=== PATIENT | female | born 1970 | race Caucasian/White ===

== ENCOUNTER 2016-05-20 10:39 | Outpatient (CLI) | payer OTHER | END 2016-05-20 10:40 | disposition home or self-care (01) | DX: R59.0 Localized enlarged lymph nodes (principal) ==

== ENCOUNTER 2016-12-09 07:15 | Outpatient (CLI) | payer OTHER ==
[2016-12-09 11:21] LABS: BASOPHILS # (AUTO) 0.1 10^3/uL (0.0-0.1); BASOPHILS % (AUTO) 0.4 %; EOSINOPHILS # (AUTO) 0.2 10^3/uL (0.0-0.7); EOSINOPHILS % (AUTO) 1.5 %; HGB - HEMOGLOBIN 14.4 g/dL (12.0-16.0); LYMPHOCYTES # (AUTO) 5.6 10^3/uL (1.5-3.5); LYMPHOCYTES % (AUTO) 45.2 %; MEAN CORPUSCULAR HEMOGLOBIN 28.1 pg (27.0-31.0); MEAN CORPUSCULAR HGB CONC 32.8 g/dL (32.0-36.0); MEAN CORPUSCULAR VOLUME 85.7 fL (81.0-99.0); MEAN PLATELET VOLUME 6.6 fL (7.9-10.8); MONOCYTES # (AUTO) 0.7 10^3/uL (0.0-1.0); MONOCYTES % (AUTO) 5.5 %; NEUTROPHILS # (AUTO) 5.9 10^3/uL (1.5-6.6); NEUTROPHILS % (AUTO) 47.4 %; RED BLOOD COUNT 5.13 10^6/uL (4.20-5.40); RED CELL DISTRIBUTION WIDTH 14.5 % (12.0-15.0); UNCORRECTED WHITE BLOOD COUNT 12.4 x10^3/uL; WHITE BLOOD COUNT 12.4 x10^3/uL (4.8-10.8)
[2016-12-09 11:40] LABS: ALBUMIN/GLOBULIN RATIO 1.1 (1.0-2.2); BILIRUBIN,TOTAL 0.5 mg/dL (0.2-1.0); BUN - BLOOD UREA NITROGEN 13 mg/dL (6-20); CALCIUM 8.9 mg/dL (8.5-10.3); CARBON DIOXIDE - CO2 27 mmol/L (21-32); CHLORIDE 102 mmol/L (101-111); CHOL/HDL RATIO 6.1 (<4.4); CHOLESTEROL 276 mg/dL; GFR - MDRD 60 (>89); GLUCOSE 73 mg/dL (70-100); HDL CHOLESTEROL 45 mg/dL; LDL/HDL RATIO 4.4 (<4.4); POTASSIUM 4.4 mmol/L (3.5-5.0); SODIUM 138 mmol/L (135-145); TOTAL PROTEIN 6.6 g/dL (6.7-8.2); TRIGLYCERIDES 166 mg/dL; VLDL CHOLESTEROL 33 mg/dL
[2016-12-09 12:02] LABS: WBC MORPHOLOGY (MULTIPLE) 1+ REACTIVE LYMPHS (NORMAL)
== END 2016-12-09 07:16 | disposition home or self-care (01) ==
LOC: LAB.F 07:15
PROVIDERS: ATTEND Physician Assistant Medical
DX: E78.5 Hyperlipidemia, unspecified (principal); Z51.81 Encounter for therapeutic drug level monitoring
CPT/HCPCS: 36415; 80053; 80061; 85025

== ENCOUNTER 2017-06-07 14:53 | Outpatient (CLI) | payer OTHER, BC | END 2017-06-07 14:54 | disposition EMS.NT | LOC: EMS 14:53 | PROVIDERS: ATTEND Surgery | DX: R42 Dizziness and giddiness (principal); R10.9 Unspecified abdominal pain ==

== ENCOUNTER 2017-06-07 15:46 | Emergency (ER) | payer OTHER, BC ==
[2017-06-07 15:58] VITALS: BP 143/80
[2017-06-07] MEDS ORDERED: KETOROLAC 60 MG/2 ML VIAL IVP STA (16:07)
[2017-06-07] MEDS ORDERED: ONDANSETRON 4 MG/2 ML VIAL IVP STA (16:07)
--- NOTE | 2017-06-07 16:09 | ED Physician Documentation ---
PD HPI ABD PAIN - Stated complaint Stated Complaint: RIGHT SIDE BACK PX - Chief complaint Chief Complaint: Abd Pain - History obtained from History obtained from: Patient - History of Present Illness Timing - onset: Today (47-year-old woman with history of renal colic 1 which did require intervention may be 2 or 3 years ago at [employer] presents with acute right flank pain starting while at work about 45 minutes ago. She also feels nauseous. No fevers or urinary complaints.) Review of Systems Ten Systems: 10 systems reviewed and negative Constitutional: reports: Sweats. denies: Fever, Chills Cardiac: denies: Chest pain / pressure, Palpitations Respiratory: denies: Dyspnea, Cough GI: reports: Nausea. 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: Other - Present Medications Home Medications: Ambulatory Orders Medication Instructions Recorded Confirmed Alprazolam [Xanax] 0.5 mg PO BID PRN 09/01/15 09/01/15 Hydrocodone/Acetaminophen [Vicodin 1 each PO QID PRN 09/01/15 09/01/15 Es 7.5-300 mg Tablet] Temazepam [Restoril] 30 mg PO DAILY 09/01/15 09/01/15 Fluoxetine HCl [Prozac] 80 mg PO DAILY 06/07/17 06/07/17 HYDROcod/ACETAM 5/325 [[place] 5/325] 1 - 2 ea PO Q6H PRN #15 tablet 06/07/17 - Allergies Allergies/Adverse Reactions: Allergies Allergy/AdvReac Type Severity Reaction Status Date / Time No Known Drug Allergies Allergy Verified 06/07/17 15:52 - Social History Does the pt smoke?: Yes Smoking Status: Heavy tobacco smoker Does the pt drink ETOH?: No Does the pt have substance abuse?: No - Family History Family history: reports: Non contributory - Immunizations Immunizations are current?: Yes - POLST Patient has POLST: No PD ED PE NORMAL - Vitals Vital signs reviewed: Yes - General General: Alert and oriented X 3, Other (She appears mildly uncomfortable.) - HEENT HEENT: PERRL, EOMI - Neck Neck: Supple, no meningeal sign, No bony TTP - Cardiac Cardiac: RRR, No murmur - Respiratory Respiratory: No respiratory distress, Clear bilaterally - Abdomen Abdomen: Normal bowel sounds, Soft, Other (Mild right abdominal and flank tenderness) - Back Back: No spinal TTP - Derm Derm: Normal color, Warm and dry - Extremities Extremities: No edema, No calf tenderness / cord - Neuro Neuro: Alert and oriented X 3, Normal speech Results - Vitals Vitals: Vital Signs - 24 hr 06/07/17 15:49 Temperature 36.0 C L Heart Rate 56 L Respiratory 18 Rate Blood Pressure 143/80 H O2 Saturation 97 Oxygen O2 Source Room air - Labs Labs: Laboratory Tests 06/07/17 06/07/17 06/07/17 16:00 16:21 16:21 WBC 9.5 RBC 5.01 Hgb 14.4 Hct 42.8 MCV 85.4 MCH 28.8 MCHC 33.7 RDW 14.2 Plt Count 297 MPV 6.6 L Neut # 5.0 Lymph # 3.7 H [place] # 0.6 Eos # 0.2 Baso # 0.1 Absolute Nucleated RBC 0.01 Nucleated RBC % 0.1 Sodium 136 Potassium 3.3 L Chloride 102 Carbon Dioxide 27 Anion Gap 7.0 BUN 9 Creatinine 0.7 Estimated GFR (MDRD) 90 Glucose 86 Calcium 9.6 Total Bilirubin 0.4 AST 14 ALT 16 Alkaline Phosphatase 81 Total Protein 8.1 Albumin 4.5 Globulin 3.6 Albumin/Globulin Ratio 1.3 Lipase 29 Urine Color YELLOW Urine Clarity CLEAR Urine pH 5.5 Ur Specific [place] 1.010 Urine Protein NEGATIVE Urine Glucose (UA) NEGATIVE Urine Ketones NEGATIVE Urine Occult Blood NEGATIVE Urine Nitrite NEGATIVE Urine Bilirubin NEGATIVE Urine Urobilinogen 0.2 (NORMAL) Ur Leukocyte Esterase NEGATIVE Ur Microscopic Review NOT INDICATED Urine Culture Comments NOT INDICATED Urine HCG, Qual NEGATIVE - Rads (name of study) CT KUB Radiology: EMP read contemporaneously (Right nephrolithiasis with mild right hydronephrosis and disease at the bases of the lungs.) PD MEDICAL DECISION MAKING - ED course ED course: 47-year-old woman with acute right flank pain consistent with renal colic, no stones seen seen on CT but she does have hydronephrosis. This was explored with her and it sounds like she does have some stricturing from prior kidney stone. She was also advised to stop smoking given the findings on CT regarding her lungs. She was given a copy of her CT on CD and advised to follow-up with her urologist. Departure - Departure Disposition: 01 Home, Self Care Clinical Impression: Hydronephrosis Qualifiers: Hydronephrosis type: unspecified Qualified Code(s): N13.30 - Unspecified hydronephrosis Condition: Good Record reviewed to determine appropriate education?: Yes Instructions: ED Pelvic Pain UKO Prescriptions: HYDROcod/ACETAM 5/325 [[place] 5/325] 1 - 2 ea PO Q6H PRN #15 tablet PRN Reason: Pain Comments: Follow-up with your physician and explore referral to a urologist. Take the copy of the CAT scan on CD with you. Return if worsening. Try to quit smoking as discussed given the findings on your CAT scan. Do not drink or drive while taking narcotic pain medication. Note that many narcotic pain relievers also contain Tylenol/acetaminophen. Please ensure that your total dose of acetaminophen from all sources does not exceed 3 g (3000 mg) per day. You may get constipated while on this medication. Take a stool softener such as Colace twice a day while you are on it. Also add an bjvt-zun-lyzrvyl laxative such as senna or MiraLAX on any day that you do not have a bowel movement. If you received a narcotic pain medication or sedative while in the emergency department, do not drive for the next 24 hours. Your blood pressure was elevated today on check into the emergency department. This does not mean that you have hypertension, it is a common phenomenon to come to the emergency department and have elevated blood pressure. I recommend that you see your primary care physician within the week to have it rechecked when you are feeling better.
[2017-06-07 16:27] LABS: BASOPHILS # (AUTO) 0.1 10^3/uL (0.0-0.1); BASOPHILS % (AUTO) 0.6 %; EOSINOPHILS # (AUTO) 0.2 10^3/uL (0.0-0.7); EOSINOPHILS % (AUTO) 1.8 %; HGB - HEMOGLOBIN 14.4 g/dL (12.0-16.0); LYMPHOCYTES # (AUTO) 3.7 10^3/uL (1.5-3.5); LYMPHOCYTES % (AUTO) 38.7 %; MEAN CORPUSCULAR HEMOGLOBIN 28.8 pg (27.0-31.0); MEAN CORPUSCULAR HGB CONC 33.7 g/dL (32.0-36.0); MEAN CORPUSCULAR VOLUME 85.4 fL (81.0-99.0); MEAN PLATELET VOLUME 6.6 fL (7.9-10.8); MONOCYTES # (AUTO) 0.6 10^3/uL (0.0-1.0); MONOCYTES % (AUTO) 5.8 %; NEUTROPHILS % (AUTO) 53.1 %; PLT - PLATELET COUNT 297 10^3/uL (130-450); RED BLOOD COUNT 5.01 10^6/uL (4.20-5.40); RED CELL DISTRIBUTION WIDTH 14.2 % (12.0-15.0); WHITE BLOOD COUNT 9.5 x10^3/uL (4.8-10.8)
[2017-06-07 16:36] LABS: BILIRUBIN,URINE NEGATIVE (NEGATIVE); CLARITY,URINE CLEAR (CLEAR); GLUCOSE, URINE (UA) NEGATIVE (NEGATIVE); KETONES,URINE (UA) NEGATIVE (NEGATIVE); LEUKOCYTE ESTERASE, URINE NEGATIVE (NEGATIVE); NITRITE,URINE NEGATIVE (NEGATIVE); OCCULT BLOOD,URINE NEGATIVE (NEGATIVE); PH,URINE 5.5 PH (5.0-7.5); PROTEIN,URINE NEGATIVE (NEGATIVE); UROBILINOGEN,URINE 0.2 (NORMAL) E.U./dL (NORMAL)
[2017-06-07 16:37] LABS: HCG UR QUAL NEGATIVE
[2017-06-07 16:39] LABS: ALBUMIN 4.5 g/dL (3.2-5.5); ALBUMIN/GLOBULIN RATIO 1.3 (1.0-2.2); BILIRUBIN,TOTAL 0.4 mg/dL (0.2-1.0); CALCIUM 9.6 mg/dL (8.5-10.3); CREATININE 0.7 mg/dL (0.4-1.0); TOTAL PROTEIN 8.1 g/dL (6.7-8.2)
--- NOTE | 2017-06-07 17:11 | CT Report ---
EXAM: CT ABDOMEN AND PELVIS (CT KUB) EXAM DATE: 06/07/2017 04:52 PM. CLINICAL HISTORY: R flank pain. COMPARISONS: 08/14/2015. TECHNIQUE: Routine axial helical CT imaging was performed through the abdomen and pelvis without IV c ontrast. Reconstructions: Coronal and sagittal. In accordance with CT protocol optimization, one or more of the following dose reduction techniques w ere utilized for this exam: automated exposure control, adjustment of mA and/or KV based on patient s ize, or use of iterative reconstructive technique. FINDINGS: Lung Bases: The lung bases demonstrate a mosaic parenchymal pattern. There is mild interlobular septa l thickening. There is a stable nodularity within the lung bases. No evidence of pleural effusion. Right Kidney/Ureter: There is a small nonobstructing stone within the inferior right kidney. There is mild right hydronephrosis. No evidence of significant hydroureter. No distal obstructing stone is se en. No perinephric stranding. Left Kidney/Ureter: No stones, hydronephrosis, or hydroureter. No perinephric fat stranding. Other Solid Organs: Noncontrast images of the solid organs are grossly unremarkable. Gallbladder/Bile Ducts: The gallbladder is surgically absent. There is no significant bile duct dilat ation. Peritoneal Cavity: No dilated or thick-walled bowel is seen. The appendix is normal. No enlarged mese nteric or retroperitoneal lymph nodes. No intraperitoneal free air or free fluid. Pelvic Organs: Uterus and adnexa demonstrate no significant abnormalities. There is mild heterogeneit y of the right ovary. The urinary bladder demonstrates no stones. Vasculature: Unremarkable. Other: None. IMPRESSION: 1. There is right nephrolithiasis. There is mild right hydronephrosis without evidence of obstructing stone. Findings could be secondary to passed stone or infection. 2. No evidence of appendicitis or bowel obstruction. 3. The lung bases demonstrate a mosaic parenchymal pattern. There is some interlobular septal thicken ing. There are scattered nodules within the lung bases. Differential considerations include air grace ing secondary to small to medium airway disease, lung edema, or interstitial lung disease. [facility] Referring Provider Line: [phone] SITE ID: [id number]
[2017-06-07] MEDS ORDERED: MORPHINE 10 MG/ML VIAL IVP STA (17:21)
== END 2017-06-07 18:11 | disposition home or self-care (01) ==
LOC: ED 15:46
DX: N13.30 Unspecified hydronephrosis (principal); N20.0 Calculus of kidney; R03.0 Elevated blood-pressure reading, without diagnosis of hypertension; F17.210 Nicotine dependence, cigarettes, uncomplicated
CPT/HCPCS: 36415; 74176; 80053; 81001; 81003; 81025; 83690; 85025; 87086; 96374; 96375; 99283

== ENCOUNTER 2018-04-10 08:00 | Outpatient (CLI) | payer BC, OTHER ==
[2018-04-10 10:29] LABS: BASOPHILS % (AUTO) 0.3 %; EOSINOPHILS # (AUTO) 0.2 10^3/uL (0.0-0.7); EOSINOPHILS % (AUTO) 1.8 %; HGB - HEMOGLOBIN 14.6 g/dL (12.0-16.0); LYMPHOCYTES # (AUTO) 3.2 10^3/uL (1.5-3.5); LYMPHOCYTES % (AUTO) 33.6 %; MEAN CORPUSCULAR HEMOGLOBIN 29.4 pg (27.0-31.0); MEAN CORPUSCULAR HGB CONC 33.9 g/dL (32.0-36.0); MEAN CORPUSCULAR VOLUME 86.6 fL (81.0-99.0); MEAN PLATELET VOLUME 7.2 fL (7.9-10.8); MONOCYTES # (AUTO) 0.5 10^3/uL (0.0-1.0); MONOCYTES % (AUTO) 4.9 %; NEUTROPHILS # (AUTO) 5.7 10^3/uL (1.5-6.6); NEUTROPHILS % (AUTO) 59.4 %; PLT - PLATELET COUNT 300 10^3/uL (130-450); RED BLOOD COUNT 4.96 10^6/uL (4.20-5.40); RED CELL DISTRIBUTION WIDTH 14.4 % (12.0-15.0); WHITE BLOOD COUNT 9.5 x10^3/uL (4.8-10.8)
[2018-04-10 11:04] LABS: ALBUMIN 3.8 g/dL (3.2-5.5); ALBUMIN/GLOBULIN RATIO 1.1 (1.0-2.2); ALKALINE PHOSPHATASE 77 IU/L (42-121); ALT ALANINE AMINOTRANSFERASE 15 IU/L (10-60); AST ASPARTATE AMINOTRANSFERASE 12 IU/L (10-42); BILIRUBIN,TOTAL 0.2 mg/dL (0.2-1.0); BUN - BLOOD UREA NITROGEN 9 mg/dL (6-20); CALCIUM 9.2 mg/dL (8.5-10.3); CARBON DIOXIDE - CO2 26 mmol/L (21-32); CHLORIDE 103 mmol/L (101-111); CHOL/HDL RATIO 7.6 (<4.4); CHOLESTEROL 325 mg/dL; CREATININE 0.7 mg/dL (0.4-1.0); GFR - MDRD 90 (>89); GLUCOSE 89 mg/dL (70-100); HDL CHOLESTEROL 43 mg/dL; LDL CHOLESTEROL,CALCULATED 240 mg/dL; LDL/HDL RATIO 5.6 (<4.4); SODIUM 138 mmol/L (135-145); TOTAL PROTEIN 7.3 g/dL (6.7-8.2); VLDL CHOLESTEROL 42 mg/dL
== END 2018-04-10 23:59 | disposition home or self-care (01) ==
LOC: LAB.F 08:00
PROVIDERS: ATTEND Physician Assistant Medical
DX: Z51.81 Encounter for therapeutic drug level monitoring (principal); Z79.899 Other long term (current) drug therapy
CPT/HCPCS: 36415; 80053; 80061; 83721; 85025

== ENCOUNTER 2018-04-17 10:40 | Outpatient (CLI) | payer BC | END 2018-04-17 10:41 | disposition critical access hospital (66) | LOC: EMS 10:40 | PROVIDERS: ATTEND Surgery | DX: R55 Syncope and collapse (principal) | CPT/HCPCS: A0425; A0427 ==

== ENCOUNTER 2018-04-17 11:04 | Emergency (ER) | payer BC ==
--- NOTE | 2018-04-17 12:02 | ED Physician Documentation ---
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 She was brought in by ambulance with a normal blood sugar. EKG was reported to be normal. Patient is somnolent and a hesitant historian. She almost immediately asked to go home after my evaluation but before any diagnostics have been done.) Review of Systems Constitutional: denies: Fever, Chills Cardiac: denies: Chest pain / pressure, Palpitations Respiratory: reports: Dyspnea. 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: Other - Present Medications Home Medications: Ambulatory Orders Medication Instructions Recorded Confirmed Alprazolam [Xanax] 0.5 mg PO BID PRN 09/01/15 09/01/15 Hydrocodone/Acetaminophen [Vicodin 1 each PO QID PRN 09/01/15 09/01/15 Es 7.5-300 mg Tablet] Temazepam [Restoril] 30 mg PO DAILY 09/01/15 09/01/15 Fluoxetine HCl [Prozac] 80 mg PO DAILY 06/07/17 06/07/17 - Allergies Allergies/Adverse Reactions: Allergies Allergy/AdvReac Type Severity Reaction Status Date / Time Penicillins Allergy Hives Verified 04/17/18 11:27 - Social History Does the pt smoke?: Yes Smoking Status: Current every day smoker Does the pt drink ETOH?: No Does the pt have substance abuse?: No - Immunizations Immunizations are current?: Yes - POLST Patient has POLST: No PD ED PE NORMAL - Vitals Vital signs reviewed: Yes - General General: Other (She is somnolent but easily arousable. She is slow to speak and has slightly slurred speech. 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 Eye Opening: Spontaneous Motor: Obeys Commands Verbal: Oriented GCS Score: 15 - Psych Psych: Normal mood, Normal affect Results - Vitals Vitals: Vital Signs - 24 hr 04/17/18 04/17/18 11:22 13:23 Temperature 36.8 C Heart Rate 72 61 Respiratory 17 22 Rate Blood Pressure 132/92 H 117/77 O2 Saturation 96 97 Oxygen O2 Source Room air - EKG (time done) 1120 Rate: Rate (enter#) (70) Rhythm: NSR [place]: Normal Intervals: Normal IN QRS: Normal Ischemia: Normal ST segments Computer interpretation: Agree with computer - Labs Labs: Laboratory Tests 04/17/18 04/17/18 04/17/18 12:09 12:20 12:20 WBC 8.7 RBC 4.73 Hgb 14.1 Hct 40.6 MCV 85.9 MCH 29.9 MCHC 34.8 RDW 14.2 Plt Count 290 MPV 6.7 L Neut # (Auto) 6.0 Lymph # (Auto) 1.9 [place] # (Auto) 0.6 Eos # (Auto) 0.1 Baso # (Auto) 0.0 Absolute Nucleated RBC 0.00 Nucleated RBC % 0.0 Sodium 138 Potassium 3.8 Chloride 104 Carbon Dioxide 24 Anion Gap 10.0 BUN 8 Creatinine 0.6 Estimated GFR (MDRD) 107 Glucose 90 Calcium 8.8 Total Bilirubin 0.4 AST 14 ALT 13 Alkaline Phosphatase 69 Total Protein 6.9 Albumin 3.7 Globulin 3.2 Albumin/Globulin Ratio 1.2 Lipase 34 Urine Color YELLOW Urine Clarity CLEAR Urine pH 5.0 Ur Specific [place] 1.010 Urine Protein NEGATIVE Urine Glucose (UA) NEGATIVE Urine Ketones NEGATIVE Urine Occult Blood NEGATIVE Urine Nitrite NEGATIVE Urine Bilirubin NEGATIVE Urine Urobilinogen 0.2 (NORMAL) Ur Leukocyte Esterase NEGATIVE Ur Microscopic Review NOT INDICATED Urine Culture Comments NOT INDICATED Salicylates < 6.0 Urine Opiates Screen NEGATIVE Ur Oxycodone Screen NEGATIVE Urine Methadone Screen NEGATIVE Ur Propoxyphene Screen NEGATIVE Acetaminophen < 10 L Ur Barbiturates Screen NEGATIVE Ur Tricyclics Screen NEGATIVE Ur Phencyclidine Scrn NEGATIVE Ur Amphetamine Screen NEGATIVE U Methamphetamines Scrn NEGATIVE U Benzodiazepines Scrn POSITIVE H Urine Cocaine Screen NEGATIVE U Cannabinoids Screen NEGATIVE Ethyl Alcohol < 5.0 - Rads (name of study) 2v chest Radiology: EMP read contemporaneously (normal) PD MEDICAL DECISION MAKING - ED course ED course: This is a 48-year-old woman status post syncopal episode with normal EKG. Examination is most consistent with a toxicologic cause such as benzodiazepine or alcohol. Her diagnostics were otherwise normal and her Mental status and exam improved to normal. Departure - Departure Disposition: 01 Home, Self Care Clinical Impression: Syncope Qualifiers: Syncope type: unspecified Qualified Code(s): R55 - Syncope and collapse Condition: Good Record reviewed to determine appropriate education?: Yes Instructions: ED Fainting Unkn Cause Comments: Call your doctor to arrange a follow-up appointment, make the next available appointment. In the interim, return anytime if worse or if new symptoms develop.
[2018-04-17 12:39] LABS: BASOPHILS % (AUTO) 0.5 %; EOSINOPHILS # (AUTO) 0.1 10^3/uL (0.0-0.7); EOSINOPHILS % (AUTO) 0.7 %; HGB - HEMOGLOBIN 14.1 g/dL (12.0-16.0); LYMPHOCYTES # (AUTO) 1.9 10^3/uL (1.5-3.5); LYMPHOCYTES % (AUTO) 22.4 %; MEAN CORPUSCULAR HEMOGLOBIN 29.9 pg (27.0-31.0); MEAN CORPUSCULAR HGB CONC 34.8 g/dL (32.0-36.0); MEAN CORPUSCULAR VOLUME 85.9 fL (81.0-99.0); MEAN PLATELET VOLUME 6.7 fL (7.9-10.8); MONOCYTES # (AUTO) 0.6 10^3/uL (0.0-1.0); MONOCYTES % (AUTO) 6.5 %; NEUTROPHILS % (AUTO) 69.9 %; PLT - PLATELET COUNT 290 10^3/uL (130-450); RED BLOOD COUNT 4.73 10^6/uL (4.20-5.40); RED CELL DISTRIBUTION WIDTH 14.2 % (12.0-15.0); WHITE BLOOD COUNT 8.7 x10^3/uL (4.8-10.8)
[2018-04-17 12:50] LABS: MUDS CUTOFF CONCENTRATIONS CUTOFF CONC BELOW:
[2018-04-17 12:55] LABS: ACETAMINOPHEN < 10 ug/mL (10-30); ALBUMIN 3.7 g/dL (3.2-5.5); ALBUMIN/GLOBULIN RATIO 1.2 (1.0-2.2); ALKALINE PHOSPHATASE 69 IU/L (42-121); ALT ALANINE AMINOTRANSFERASE 13 IU/L (10-60); AST ASPARTATE AMINOTRANSFERASE 14 IU/L (10-42); BILIRUBIN,TOTAL 0.4 mg/dL (0.2-1.0); BUN - BLOOD UREA NITROGEN 8 mg/dL (6-20); CALCIUM 8.8 mg/dL (8.5-10.3); CARBON DIOXIDE - CO2 24 mmol/L (21-32); CHLORIDE 104 mmol/L (101-111); CREATININE 0.6 mg/dL (0.4-1.0); GFR - MDRD 107 (>89); GLUCOSE 90 mg/dL (70-100); LIPASE 34 U/L (22-51); SALICYLATE < 6.0 mg/dL; SODIUM 138 mmol/L (135-145); TOTAL PROTEIN 6.9 g/dL (6.7-8.2)
[2018-04-17 12:57] LABS: BILIRUBIN,URINE NEGATIVE (NEGATIVE); GLUCOSE, URINE (UA) NEGATIVE (NEGATIVE); KETONES,URINE (UA) NEGATIVE (NEGATIVE); LEUKOCYTE ESTERASE, URINE NEGATIVE (NEGATIVE); NITRITE,URINE NEGATIVE (NEGATIVE); OCCULT BLOOD,URINE NEGATIVE (NEGATIVE); PROTEIN,URINE NEGATIVE (NEGATIVE); UROBILINOGEN,URINE 0.2 (NORMAL) E.U./dL (NORMAL)
[2018-04-17 13:01] LABS: CLARITY,URINE CLEAR (CLEAR)
[2018-04-17 13:05] LABS: AMPHETAMINE SCREEN,URINE NEGATIVE (NEGATIVE); BENZODIAZEPINES SCREEN, URINE POSITIVE (NEGATIVE); COCAINE SCREEN URINE NEGATIVE (NEGATIVE); METHADONE SCREEN, URINE NEGATIVE (NEGATIVE); METHAMPHETAMINES SCREEN, URINE NEGATIVE (NEGATIVE); OPIATE SCREEN, URINE NEGATIVE (NEGATIVE); OXYCODONE SCREEN, URINE NEGATIVE (NEGATIVE); PROPOXYPHENE SCREEN, URINE NEGATIVE (NEGATIVE); TRICYCLIC ANTIDEPRESSANT,URINE NEGATIVE (NEGATIVE)
[2018-04-17 13:23] VITALS: BP 117/77
--- NOTE | 2018-04-17 13:29 | XRAY Report ---
Reason: dyspnea, crackles Procedure Date: 04/17/2018 Accession Number: [id number] / [id number] Procedure: XR - Chest 2 View X-Ray CPT Code: 42426 FULL RESULT: EXAM: CHEST RADIOGRAPHY EXAM DATE: 04/17/2018 12:50 PM. CLINICAL HISTORY: Dyspnea, crackles. COMPARISON: 01/06/2015 3:50 PM. TECHNIQUE: 2 views. FINDINGS: Lungs/Pleura: Chronic increased interstitial markings bilaterally. No focal opacities evident. No pleural effusion. No pneumothorax. Normal volumes. Mediastinum: Heart and mediastinal contours are unremarkable. Other: None. IMPRESSION: No active cardiopulmonary disease. Chronic increased interstitial markings. [facility]
== END 2018-04-17 14:24 | disposition home or self-care (01) ==
LOC: EDUNIT# → ED 11:04
DX: R55 Syncope and collapse (principal); R40.0 Somnolence; H55.00 Unspecified nystagmus; F17.200 Nicotine dependence, unspecified, uncomplicated
CPT/HCPCS: 36415; 71046; 80053; 80306; 80307; 80320; 80329; 81001; 81003; 83690; 85025; 87086; 93005; 99282; 99283

== ENCOUNTER 2019-01-23 08:07 | Outpatient (CLI) | payer OTHER ==
[2019-01-23 11:26] LABS: BASOPHILS % (AUTO) 0.6 %; EOSINOPHILS # (AUTO) 0.1 10^3/uL (0.0-0.7); HGB - HEMOGLOBIN 14.6 g/dL (12.0-16.0); LYMPHOCYTES # (AUTO) 2.6 10^3/uL (1.5-3.5); MEAN CORPUSCULAR HEMOGLOBIN 29.3 pg (27.0-31.0); MEAN CORPUSCULAR HGB CONC 32.9 g/dL (32.0-36.0); MEAN CORPUSCULAR VOLUME 89.2 fL (81.0-99.0); MEAN PLATELET VOLUME 9.5 fL (7.9-10.8); MONOCYTES # (AUTO) 0.4 10^3/uL (0.0-1.0); MONOCYTES % (AUTO) 5.7 %; NEUTROPHILS # (AUTO) 3.9 10^3/uL (1.5-6.6); NEUTROPHILS % (AUTO) 54.6 %; PLT - PLATELET COUNT 293 10^3/uL (130-450); RED BLOOD COUNT 4.98 10^6/uL (4.20-5.40); WHITE BLOOD COUNT 7.1 x10^3/uL (4.8-10.8)
== END 2019-01-23 08:08 | disposition home or self-care (01) ==
LOC: LAB.S 08:07
PROVIDERS: ATTEND Physician Assistant Medical
DX: Z51.81 Encounter for therapeutic drug level monitoring (principal); Z79.899 Other long term (current) drug therapy; Z11.1 Encounter for screening for respiratory tuberculosis
CPT/HCPCS: 36415; 81599; 85025; 86480

== ENCOUNTER 2020-09-17 15:43 | Outpatient (CLI) | payer OTHER | END 2020-09-17 15:44 | disposition home or self-care (01) | LOC: LAB.S 15:43 | PROVIDERS: ATTEND Family Medicine | DX: Z00.00 Encounter for general adult medical examination without abnormal findings (principal) | CPT/HCPCS: 36415; 86480 ==

== ENCOUNTER 2020-09-21 08:00 | Outpatient (CLI) | payer OTHER | END 2020-09-21 23:59 | disposition home or self-care (01) | LOC: LAB.R 08:00 | PROVIDERS: ATTEND Physician Assistant | DX: J20.9 Acute bronchitis, unspecified (principal); R05 Cough; Z20.822 Contact with and (suspected) exposure to COVID-19 ==

== ENCOUNTER 2020-09-21 22:16 | Emergency (ER) | payer OTHER ==
[2020-09-21] MEDS ORDERED: SODIUM CHLORIDE 0.9% 1,000 ML IV STA (22:56)
[2020-09-21] MEDS ORDERED: ONDANSETRON 4 MG/2 ML VIAL IVP STA (22:56)
[2020-09-21] MEDS ORDERED: IPRATROPIUM/ALBUTEROL 3 ML NEB INH STA (23:00)
--- NOTE | 2020-09-21 23:06 | ED Physician Documentation ---
History of Present Illness - Stated complaint Stated Complaint: VOMITING - Chief complaint Chief Complaint: Abd Pain - History obtained from History obtained from: Patient - Additonal information Additional information: 50yF with pmh depression, anxiety , Recurrent acute bronchitis and pneumonia, active smoker, presents with 11 episodes of nonbloody nonbilious nausea and vomiting since 11:30 AM today. Yesterday morning she was feeling short of breath with cough productive of yellow sputum and sore throat. She presented to healthcare and was evaluated, had a Covid swab, was given a Xopenex inhaler and azithromycin and steroids. She presents now due to the nausea and vomiting. 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 Review of Systems Ten Systems: 10 systems reviewed and negative Constitutional: reports: Chills, Myalgias, Fatigue Throat: reports: Sore throat Respiratory: reports: Dyspnea, Cough GI: reports: Nausea, Vomiting. 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: Other - Present Medications Home Medications: Ambulatory Orders Medication Instructions Recorded Confirmed ALPRAZolam [Xanax] 0.5 mg PO BID PRN 09/01/15 09/01/15 Hydrocodone/Acetaminophen [Vicodin 1 each PO QID PRN 09/01/15 09/01/15 Es 7.5-300 mg Tablet] Temazepam [Restoril] 30 mg PO DAILY 09/01/15 09/01/15 Fluoxetine HCl [Prozac] 80 mg PO DAILY 06/07/17 06/07/17 - Allergies Allergies/Adverse Reactions: Allergies Allergy/AdvReac Type Severity Reaction Status Date / Time Penicillins Allergy Hives Verified 09/21/20 22:27 - Social History Does the pt smoke?: Yes Smoking Status: Current every day smoker Does the pt drink ETOH?: No Does the pt have substance abuse?: No - Immunizations Immunizations are current?: Yes - POLST Patient has POLST: No PD ED PE NORMAL - Vitals Vital signs reviewed: Yes - General General: Alert and oriented X 3, Well developed/nourished, Other (uncomfortable appearing) - HEENT HEENT: Atraumatic, PERRL, EOMI - Neck Neck: Supple, no meningeal sign - Cardiac Cardiac: RRR - Respiratory Respiratory: No respiratory distress, Clear bilaterally - Abdomen Abdomen: Non tender, Non distended - Derm Derm: Normal color, Warm and dry - Extremities Extremities: No deformity - Neuro Neuro: Alert and oriented X 3 - Psych Psych: Normal mood, Normal affect Results - Vitals Vitals: Vital Signs - 24 hr 09/21/20 09/21/20 09/21/20 22:20 22:42 23:35 Temperature 36.0 C L 36.5 C Heart Rate 93 90 102 H Respiratory 18 18 20 Rate Blood Pressure 183/94 H 180/90 H O2 Saturation 95 96 09/22/20 09/22/20 09/22/20 00:40 00:50 01:00 Temperature 36.8 C Heart Rate 102 H 102 H 100 Respiratory 20 18 18 Rate Blood Pressure 143/81 H 140/84 H O2 Saturation 97 100 Oxygen O2 Source Room air - Labs Labs: Laboratory Tests 09/21/20 09/21/20 23:20 23:20 WBC 9.6 RBC 5.48 H Hgb 15.5 Hct 46.3 MCV 84.5 MCH 28.3 MCHC 33.5 RDW 14.3 Plt Count 279 MPV 8.7 Neut # (Auto) 8.7 H Lymph # (Auto) 0.6 L [place] # (Auto) 0.3 Eos # (Auto) 0.0 Baso # (Auto) 0.0 Absolute Nucleated RBC 0.00 Nucleated RBC % 0.0 Sodium 137 Potassium 3.9 Chloride 98 L Carbon Dioxide 25 Anion Gap 14.0 H BUN 7 Creatinine 1.0 Estimated GFR (MDRD) 59 L Glucose 153 H Calcium 9.6 Total Bilirubin 0.5 AST 46 H ALT 50 Alkaline Phosphatase 98 Total Protein 8.2 Albumin 4.4 Globulin 3.8 Albumin/Globulin Ratio 1.2 Lipase 19 L PD MEDICAL DECISION MAKING - ED course ED course: tolerating PO ice chips. return precautions given. plan to quarantine and wait for covid results. education given about symptom management. Departure - Departure Disposition: 01 Home, Self Care Clinical Impression: Nausea and vomiting, Cough Condition: Stable Instructions: ED Nausea Vomiting Comments: You were seen in the ED for nausea and vomiting as well as sore throat and cough. Your chest xray shows a possible mild walking pneumonia which could be viral, but you should continue your antibiotics until through. please quarantine at home until you get your test results back and/or your symptoms resoolve. return to the emergency department if you have any new or worsening symptoms or other concerns. Follow up with your doctor via telehealth. Discharge Date/Time: 09/22/20 01:05
[2020-09-21] MEDS ORDERED: ALBUTEROL 1 PUFF INH STA (23:28)
[2020-09-21 23:45] LABS: HGB - HEMOGLOBIN 15.5 g/dL (12.0-16.0); RED BLOOD COUNT 5.48 10^6/uL (4.20-5.40); WHITE BLOOD COUNT 9.6 x10^3/uL (4.8-10.8)
[2020-09-21 23:46] LABS: BASOPHILS % (AUTO) 0.4 %; HCT - HEMATOCRIT 46.3 % (37.0-47.0); LYMPHOCYTES # (AUTO) 0.6 10^3/uL (1.5-3.5); LYMPHOCYTES % (AUTO) 5.7 %; MEAN CORPUSCULAR HEMOGLOBIN 28.3 pg (27.0-31.0); MEAN CORPUSCULAR HGB CONC 33.5 g/dL (32.0-36.0); MEAN CORPUSCULAR VOLUME 84.5 fL (81.0-99.0); MEAN PLATELET VOLUME 8.7 fL (7.9-10.8); MONOCYTES # (AUTO) 0.3 10^3/uL (0.0-1.0); MONOCYTES % (AUTO) 2.7 %; NEUTROPHILS # (AUTO) 8.7 10^3/uL (1.5-6.6); NEUTROPHILS % (AUTO) 90.8 %; PLT - PLATELET COUNT 279 10^3/uL (130-450); RED CELL DISTRIBUTION WIDTH 14.3 % (12.0-15.0)
[2020-09-22 00:04] LABS: POTASSIUM 3.9 mmol/L (3.5-5.0)
[2020-09-22 00:05] LABS: ALBUMIN 4.4 g/dL (3.2-5.5); ALBUMIN/GLOBULIN RATIO 1.2 (1.0-2.2); BILIRUBIN,TOTAL 0.5 mg/dL (0.2-1.0); CALCIUM 9.6 mg/dL (8.5-10.3); TOTAL PROTEIN 8.2 g/dL (6.7-8.2)
[2020-09-22] MEDS ORDERED: ONDANSETRON ODT 4 MG Prepack 2 TL PRN (00:30)
[2020-09-22] MEDS ORDERED: ONDANSETRON ODT 4 MG TABLET TL STA (00:36)
[2020-09-22] MEDS ORDERED: IPRATROPIUM/ALBUTEROL 3 ML NEB INH STA (00:42)
[2020-09-22 01:07] VITALS: BP 140/84
--- NOTE | 2020-09-25 15:05 | XRAY Report ---
PROCEDURE: CHEST 1 View INDICATIONS: COUGH TECHNIQUE: One view of the chest was acquired. COMPARISON: None FINDINGS: Surgical changes and devices: None. Lungs and pleura: No pleural effusions or pneumothorax. Lungs are clear. Mediastinum: Mediastinal contours appear normal. Heart size is normal. Bones and chest wall: No suspicious bony lesions. Overlying soft tissues appear unremarkable. IMPRESSION: No evidence acute pulmonary process. Reviewed by: Pillo Muse MD on 09/22/2020 12:30 AM PDT Approved by: Pillo Muse MD on 09/22/2020 12:30 AM PDT Station ID: [id number]
== END 2020-09-22 01:05 | disposition home or self-care (01) ==
LOC: ED 22:16
DX: R11.2 Nausea with vomiting, unspecified (principal); R05 Cough; F17.200 Nicotine dependence, unspecified, uncomplicated
CPT/HCPCS: 36415; 80053; 83690; 85025; 94640; 94664; 96374; 99284

== ENCOUNTER 2020-09-29 07:55 | Outpatient (CLI) | payer OTHER | END 2020-09-29 07:56 | disposition short-term general hospital (02) | LOC: EMS 07:55 | DX: R06.02 Shortness of breath (principal); R05 Cough | CPT/HCPCS: A0425; A0427 ==

== ENCOUNTER 2022-05-11 09:04 | Emergency (ER) | payer OTHER ==
[2022-05-11] MEDS ORDERED: IBUPROFEN 600 MG TABLET PO STA (10:11)
[2022-05-11] MEDS ORDERED: ACETAMINOPHEN 325 MG TABLET PO STA (10:11)
[2022-05-11] MEDS ORDERED: SODIUM CHLORIDE 0.9% 1,000 ML IV STA ×2 (10:11→10:43)
[2022-05-11] MEDS ORDERED: VANCOMYCIN INJ 2 GM in SODIUM CHLORIDE 0.9% 500 ML IV STA (10:11)
[2022-05-11] MEDS ORDERED: cephALEXin 250 MG CAPSULE PO STA (10:11)
[2022-05-11 10:59] LABS: BASOPHILS % (AUTO) 0.2 %; EOSINOPHILS % (AUTO) 0.1 %; HCT - HEMATOCRIT 41.7 % (37.0-47.0); HGB - HEMOGLOBIN 13.1 g/dL (12.0-16.0); LYMPHOCYTES # (AUTO) 2.1 10^3/uL (1.5-3.5); LYMPHOCYTES % (AUTO) 15.3 %; MEAN CORPUSCULAR HEMOGLOBIN 26.2 pg (27.0-31.0); MEAN CORPUSCULAR HGB CONC 31.4 g/dL (32.0-36.0); MEAN CORPUSCULAR VOLUME 83.4 fL (81.0-99.0); MEAN PLATELET VOLUME 8.4 fL (7.9-10.8); MONOCYTES # (AUTO) 0.6 10^3/uL (0.0-1.0); MONOCYTES % (AUTO) 4.6 %; NEUTROPHILS # (AUTO) 10.7 10^3/uL (1.5-6.6); NEUTROPHILS % (AUTO) 79.5 %; PLT - PLATELET COUNT 260 10^3/uL (130-450); RED CELL DISTRIBUTION WIDTH 15.9 % (12.0-15.0); WHITE BLOOD COUNT 13.4 x10^3/uL (4.8-10.8)
[2022-05-11 11:12] LABS: ALBUMIN 3.6 g/dL (3.2-5.5); ALBUMIN/GLOBULIN RATIO 0.9 (1.0-2.2); BILIRUBIN,TOTAL 0.5 mg/dL (0.2-1.0); CALCIUM 8.5 mg/dL (8.5-10.3); CREATININE 0.7 mg/dL (0.4-1.0); POTASSIUM 3.9 mmol/L (3.5-5.0); TOTAL PROTEIN 7.6 g/dL (6.7-8.2)
[2022-05-11 12:35] VITALS: BP 107/76
--- NOTE | 2022-05-11 13:50 | ED Physician Documentation ---
History of Present Illness - Stated complaint Stated Complaint: C+ RT FACE SWELLING - Chief complaint Chief Complaint: General - History obtained from History obtained from: Patient - Additonal information Additional information: Pt comes to the ED with CC of R facial swelling and redness that started yesterday, but is worse today. She states she has both pain and itching. The pt has mild chronic eczema in her ear, and noticed a painful "lump" in front of her ear yesterday morning. Redness and swelling developed gradually after that. No visual changes. Mild fever, rhinorrhea and cough. Pt was dx with covid several days ago. Denies dyspnea or GI sx. No dental pain. 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: Other : Kidney stones HEENT: None Psych: Depression, Anxiety Musculoskeletal: None Derm: None - Past Surgical History Past Surgical History: Yes General: Cholecystectomy /PURSE FRAMER: section, Other - Present Medications Home Medications: Ambulatory Orders Medication Instructions Recorded Confirmed Fluoxetine HCl [Prozac] 80 mg PO DAILY 06/07/05/13/22 Fluticasone/Vilanterol [Breo 1 puffs INH BID 05/11/22 05/13/22 Ellipta 200-25 Mcg INH] ALPRAZolam [Alprazolam] 0.5 mg PO DAILY PRN 05/14/22 05/14/22 Melatonin 10 mg PO HS PRN 05/14/22 05/14/22 Doxycycline [Vibramycin] 100 mg PO BID #15 tablet 05/15/22 L. Acidophilus/Pectin, [place] 1 each PO DAILY #8 cap 05/15/22 [Acidophilus Capsule] cephALEXin [Keflex] 500 mg PO Q6H #28 cap 05/15/22 - Allergies Allergies/Adverse Reactions: Allergies Allergy/AdvReac Type Severity Reaction Status Date / Time Penicillins Allergy Hives Verified 05/13/22 02:45 - Social History Does the pt smoke?: Yes Smoking Status: Current every day smoker Does the pt drink ETOH?: No Does the pt have substance abuse?: No - Immunizations Immunizations are current?: No Immunizations: Other immun not current - POLST Patient has POLST: No PD ED PE NORMAL - Vitals Vital signs reviewed: Yes - General General: Alert and oriented X 3, No acute distress, Well developed/nourished - HEENT HEENT: Atraumatic, PERRL, EOMI, Moist mucous membranes, Other (moderate R face edema, worse over maxilla and periorbitally. No induration or fluctuance. Anterior periauricular LAD. No trismus or proptosis. No globe tenderness or conjunctivitis) - Neck Neck: Supple, no meningeal sign, No adenopathy - Cardiac Cardiac: RRR, No murmur - Respiratory Respiratory: No respiratory distress, Clear bilaterally - Abdomen Abdomen: Normal bowel sounds, Soft, Non tender, Non distended - Derm Derm: Warm and dry, Other (See face exam; otherwise normal skin.) - Extremities Extremities: No deformity - Neuro Neuro: Alert and oriented X 3 - Psych Psych: Normal mood, Normal affect Results - Vitals Vitals: Oxygen O2 Source Room air - Labs Labs: Laboratory Tests 05/11/22 05/11/22 10:50 10:50 WBC 13.4 H RBC 5.00 Hgb 13.1 Hct 41.7 MCV 83.4 MCH 26.2 L MCHC 31.4 L RDW 15.9 H Plt Count 260 MPV 8.4 Neut # (Auto) 10.7 H Lymph # (Auto) 2.1 [place] # (Auto) 0.6 Eos # (Auto) 0.0 Baso # (Auto) 0.0 Absolute Nucleated RBC 0.00 Nucleated RBC % 0.0 Sodium 135 Potassium 3.9 Chloride 101 Carbon Dioxide 23 Anion Gap 11.0 BUN 7 Creatinine 0.7 Estimated GFR (MDRD) 88 L Glucose 100 Calcium 8.5 Total Bilirubin 0.5 AST 19 ALT 24 Alkaline Phosphatase 89 Total Protein 7.6 Albumin 3.6 Globulin 4.0 Albumin/Globulin Ratio 0.9 L Lipase 30 PD Medical Decision Making - ED course Complexity details: reviewed results, re-evaluated patient, considered differential, d/w patient ED course: The pt was nontoxic in appearance, but I was concerned about her facial cellulitis. She did develop a mild fever in the ED, and was treated for this, along with receiving IV vancomycin in the ED. CBC and ER abd panel were ordered and reviewed by me, and showed a WBC count of 13.4. The pt was hemodynamically stable, and did not appear septic. Her fevers are likely a combination of the cellulitis and the covid. We have discussed the need to take all of the antibiotics as directed, and to have a very low threshold for return to the ED for any worsening of the cellulitis. Departure - Departure Disposition: 01 Home, Self Care Clinical Impression: Facial cellulitis, COVID-19 Condition: Stable Instructions: ED Cellulitis Facial, ED Viral Syndrome Comments: You have not only COVID but a infection of the skin and superficial tissues of your right face. This is likely coincidental and unrelated to your COVID. You been treated with oral and IV antibiotics here in the emergency department. A prescription for your antibiotics has been electronically transmitted To the [facility] pharmacy in [place] at your request. It is very important that you take these antibiotics to keep your infection from getting worse. You have had fevers in the ER today, most likely in part because of the COVID and in part because of your facial infection. Please take Tylenol 650 mg every 4 hours and ibuprofen 600 mg every 6 hours to help with this. These medications are unrelated and may be taken together without causing harm. It will most likely take a couple of days for your infection to really start turning around and shrinking down on your face. You will likely still feel crummy because you also have COVID. However, if you notice deep redness that is rapidly spreading across your face or down your neck to your trunk, then you need to come back in be reevaluated medically. Discharge Date/Time: 05/11/22 14:06
== END 2022-05-11 14:06 | disposition home or self-care (01) ==
LOC: ED 09:04
DX: L03.211 Cellulitis of face (principal); U07.1 COVID-19; I10 Essential (primary) hypertension; J44.9 Chronic obstructive pulmonary disease, unspecified; F17.200 Nicotine dependence, unspecified, uncomplicated; Z79.51 Long term (current) use of inhaled steroids; Z88.0 Allergy status to penicillin
CPT/HCPCS: 36415; 80053; 83690; 85025; 96365; 96366; 99283

== ENCOUNTER 2022-05-13 02:38 | Inpatient (IN) | payer OTHER ==
--- NOTE | 2022-05-13 03:10 | ED Physician Documentation ---
History of Present Illness - Stated complaint Stated Complaint: C+/RT FACIAL SWELLING - Chief complaint Chief Complaint: Wound - History obtained from History obtained from: Patient - Additonal information Additional information: HPI from patient. Patient was treated and released from this emergency department 2 days ago for same symptoms. Initially, the symptoms started 4 days ago with focal swelling and tenderness over the right side of her face (she points to the region of right zygoma), And this has very rapidly, steadily spread an area of the fact as well as associated with confluent erythema, pain and tenderness. Thus, she was evaluated in the ER 2 days ago, at which time she was given IV vancomycin, then discharged with prescriptions for Keflex and Bactrim. Patient filled both these prescribed options and has been taking them as prescribed but returns due to worsening of the symptoms; specifically, the area of affect and amount of swelling have worsened. She denies any history of similar symptoms. She denies any injury. She has been having fevers at home as well as in the emergency department. 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: Other : Kidney stones HEENT: None Psych: Depression, Anxiety Musculoskeletal: None Derm: None - Past Surgical History Past Surgical History: Yes General: Cholecystectomy /RIBBON CLEANER: section, Other - Present Medications Home Medications: Ambulatory Orders Medication Instructions Recorded Confirmed Fluoxetine HCl [Prozac] 80 mg PO DAILY 06/07/17 05/13/22 Fluticasone/Vilanterol [Breo 1 puffs INH BID 05/11/22 05/13/22 Ellipta 200-25 Mcg INH] Sulfamethox/Trimeth 800/160 1 tablet PO BID 7 Days #14 tablet 05/11/22 05/13/22 [Bactrim Ds] cephALEXin [Keflex] 500 mg PO Q6H #28 cap 05/11/22 05/13/22 clonazePAM [KlonoPIN] 0.5 mg PO DAILY 05/11/22 05/13/22 - Allergies Allergies/Adverse Reactions: Allergies Allergy/AdvReac Type Severity Reaction Status Date / Time Penicillins Allergy Hives Verified 05/13/22 02:45 - Social History Does the pt smoke?: Yes Smoking Status: Current every day smoker Does the pt drink ETOH?: No Does the pt have substance abuse?: No - Immunizations Immunizations are current?: No Immunizations: Other immun not current - POLST Patient has POLST: No PD ED PE NORMAL - Vitals Vital signs reviewed: Yes - General General: Alert and oriented X 3, No acute distress, Well developed/nourished PD ED PE EXPANDED - HEENT HEENT: Other (there is confluent erythema, swelling, and tenderness in the areas depicted, below, as well as right ear. no fluctuance nor discharge) HEENT Visual: 1 - rash, swelling, tenderness 2 - rash, swelling, tenderness Results - Vitals Vitals: Vital Signs - 24 hr 05/13/22 05/13/22 05/13/22 02:47 03:11 09:00 Temperature 36.8 C 36.8 C Heart Rate 73 68 74 Respiratory 16 16 19 Rate Blood Pressure 133/77 H 119/72 126/95 H O2 Saturation 97 96 99 05/13/22 05/13/22 05/13/22 11:00 12:43 13:50 Temperature 36.8 C 36.6 C 36.9 C Heart Rate 96 81 82 Respiratory 19 18 18 Rate Blood Pressure 129/111 H 126/68 133/84 H O2 Saturation 97 97 96 05/13/22 16:32 Temperature 36.8 C Heart Rate 68 Respiratory 18 Rate Blood Pressure 129/91 H O2 Saturation 100 Oxygen O2 Source Room air - Labs Labs: Laboratory Tests 05/13/22 05/13/22 05/13/22 03:00 03:00 03:00 WBC 10.1 RBC 4.64 Hgb 12.2 Hct 38.8 MCV 83.6 MCH 26.3 L MCHC 31.4 L RDW 16.0 H Plt Count 277 MPV 8.5 Neut # (Auto) 5.7 Lymph # (Auto) 3.6 H [place] # (Auto) 0.5 Eos # (Auto) 0.3 Baso # (Auto) 0.0 Absolute Nucleated RBC 0.00 Nucleated RBC % 0.0 Sodium 139 Potassium 4.0 Chloride 107 Carbon Dioxide 24 Anion Gap 8.0 BUN 8 Creatinine 0.7 Estimated GFR (MDRD) 88 L Glucose 92 Lactic Acid 0.9 Calcium 8.7 Total Bilirubin 0.3 AST 20 ALT 21 Alkaline Phosphatase 92 Total Protein 7.2 Albumin 3.1 L Globulin 4.1 Albumin/Globulin Ratio 0.8 L Lipase 37 - Rads (name of study) CT maxillofacial with IV contrast Relevant Findings:: Prelim report reviewed, See rad report PD Medical Decision Making - ED course Complexity details: reviewed old records, reviewed results, re-evaluated patient, considered differential, d/w patient ED course: Patient presents for worsening facial cellulitis despite having received 2 g IV vancomycin on her visit to this emergency department 2 days ago, as well as 2 days of both Bactrim and Keflex. She was febrile on the previous ED visit, although afebrile on tonight's visit. Her blood work is unremarkable including white blood cell count and lactic acid level. However, it is quite concerning that her cellulitis is worsening despite the above measures and thus she would benefit from being admitted to the hospital for further observation, ongoing intravenous antibiotics until some measure of improvement is noted and consideration for discharge with oral antibiotic regimen can be reconsidered. Note that Purch chart indicates a penicillin allergy with hives as the r eaction; I went over this very specifically with the patient, and she tells me this is incorrect and that her only problem with penicillin is it has caused yeast infections in the past. She says she does not have a true allergic reaction to any antibiotic including penicillins Departure - Departure Disposition: 66 [facility] DC/Xfer Clinical Impression: Facial cellulitis, Failure of outpatient treatment Condition: Stable Discharge Date/Time: 05/13/22 17:41
[2022-05-13 03:15] LABS: BASOPHILS % (AUTO) 0.3 %; EOSINOPHILS # (AUTO) 0.3 10^3/uL (0.0-0.7); EOSINOPHILS % (AUTO) 2.8 %; HCT - HEMATOCRIT 38.8 % (37.0-47.0); HGB - HEMOGLOBIN 12.2 g/dL (12.0-16.0); LYMPHOCYTES # (AUTO) 3.6 10^3/uL (1.5-3.5); LYMPHOCYTES % (AUTO) 35.7 %; MEAN CORPUSCULAR HEMOGLOBIN 26.3 pg (27.0-31.0); MEAN CORPUSCULAR HGB CONC 31.4 g/dL (32.0-36.0); MEAN CORPUSCULAR VOLUME 83.6 fL (81.0-99.0); MEAN PLATELET VOLUME 8.5 fL (7.9-10.8); MONOCYTES # (AUTO) 0.5 10^3/uL (0.0-1.0); MONOCYTES % (AUTO) 4.5 %; NEUTROPHILS # (AUTO) 5.7 10^3/uL (1.5-6.6); NEUTROPHILS % (AUTO) 56.5 %; PLT - PLATELET COUNT 277 10^3/uL (130-450); RED BLOOD COUNT 4.64 10^6/uL (4.20-5.40); WHITE BLOOD COUNT 10.1 x10^3/uL (4.8-10.8)
[2022-05-13 03:24] LABS: ALBUMIN 3.1 g/dL (3.2-5.5); ALBUMIN/GLOBULIN RATIO 0.8 (1.0-2.2); BILIRUBIN,TOTAL 0.3 mg/dL (0.2-1.0); CALCIUM 8.7 mg/dL (8.5-10.3); CREATININE 0.7 mg/dL (0.4-1.0); TOTAL PROTEIN 7.2 g/dL (6.7-8.2)
[2022-05-13] MEDS ORDERED: iohexoL-300 100 ML VIAL ONE (03:50)
[2022-05-13] MEDS ORDERED: VANCOMYCIN INJ 2 GM in SODIUM CHLORIDE 0.9% 500 ML IV STA (04:23)
[2022-05-13] MEDS ORDERED: cefTRIAXone 2 GM VIAL IVP STA (04:24)
[2022-05-13] MEDS ORDERED: VANCOMYCIN 1 GM VIAL ONE (04:53)
[2022-05-13] MEDS ORDERED: iohexoL-300 100 ML VIAL IVP ONE (05:47)
--- NOTE | 2022-05-13 09:09 | CT Report ---
PROCEDURE: MAXILLOFACIAL W INDICATIONS: swelling, erythema CONTRAST: Omni 300 100ml TECHNIQUE: After the administration of intravenous contrast, 3.0 mm axial sections acquired from the mid-neck to the frontal sinuses, with coronal reformatting. For radiation dose reduction, the following was use d: automated exposure control, adjustment of mA and/or kV according to patient size. COMPARISON: None. FINDINGS: Image quality: Excellent. Soft tissues: There is soft tissue swelling and stranding in the right periorbital/premaxillary/edilson ndible area, consistent with cellulitis. No denies subcutaneous fluid collections to suggest abscess. Mildly enlarged cervical enlarged lymph nodes are seen bilaterally, right greater than left. Vascular: Visualized vascular structures appear patent throughout. Bony vascular foramina and canal s appear normal. Bones: Facial bones appear intact, without fractures, erosions, or destruction. Visualized portions of the skull base and auditory canals also appear normal. Sinuses: Bilateral extra sinus mucosal thickening, left greater than right. There are antrectomies bi laterally.. Mastoid air cells are aerated. IMPRESSION: 1. Right facial cellulitis. No subcutaneous collections to suggest abscess. 2. Bilateral maxillary sinusitis. 3. Mild bilateral cervical lymphadenopathy, most likely reactive. Recommend clinical follow-up. No significant discrepancy with the preliminary interpretation. Reviewed by: Ozzie Cueva MD on 05/13/2022 9:08 AM PDT Approved by: Ozzie Cueva MD on 05/13/2022 9:08 AM PDT Station ID: [id number]
[2022-05-13] MEDS ORDERED: ACETAMINOPHEN 325 MG TABLET PO STA (09:26)
[2022-05-13] MEDS ORDERED: ACETAMINOPHEN 500 MG TABLET PO PRN (09:27)
[2022-05-13] MEDS ORDERED: ONDANSETRON 4 MG/2 ML VIAL IVP PRN ×2 (09:27→17:08)
[2022-05-13] MEDS ORDERED: NICOTINE 21 MG PATCH TOP STA (09:59)
--- NOTE | 2022-05-13 14:02 | ED Physician Documentation ---
ED Addendum - Addendum Addendum: Patient signed out to me by overnight physician. Patient is boarding in the emergency department awaiting a [facility] bed for admission. She is being treated for facial cellulitis with failure of outpatient therapy. Her imaging from earlier this morning is negative for an abscess. She was started on Rocephin and vancomycin. She recently tested positive for COVID-19 on Tuesday. 05/13/22 16:46 D/W Dr. Hernández. Will admit for further management. Departure - Departure Disposition: 66 [facility] DC/Xfer Clinical Impression: Facial cellulitis, Failure of outpatient treatment Condition: Stable
[2022-05-13] MEDS ORDERED: SODIUM CHLORIDE FLUSH 0.9% 10 ML SYRINGE IVP PRN (17:08)
--- NOTE | 2022-05-13 17:17 | HISTORY & PHYSICAL EXAMINATION ---
Chief Complaint - Chief Complaint Chief Complaint: worsening facila swelling despite antibx <Veronica Hernández - Last Filed: 05/16/22 21:37> History of Present Illness - Admitted From Admitted From:: ED - History Obtained From Records Reviewed: Yes History obtained from: ED provider and the patient <Veronica Hernández - Last Filed: 05/16/22 21:37> - History of Present Illness HPI Comment/Other: This is a 52-year-old white female with a history of anxiety & depression, smoking, had COVID infection in 2020, she did not need hospitalization. There is a history of recent visit to the emergency room with c/o fevers and redness and swelling of the the right tragus and right face, and she was diagnosed with cellulitis and sent home on Keflex and Bactrim. Despite taking these antibiotics, her swelling spread. She came to the ER today because of worsening redness and swelling, no fever. CT scan was done that shows no areas of abscess or bony involvement. She is felt to have Facial cellulitis that is spreading despite compliance with oral antibiotics. 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 She is not COVID vaccinated. She tested positive for COVID a day before the initial presentation to the ER, which was 3 days ago. She does not have any cough, sputum production, dyspnea on exertion or GI symptoms. 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) - Substance History Use: Uses substance without health or social issues: Tobacco - POLST Patient has POLST: No <Veronica Hernández - Last Filed: 05/16/22 21:37> Meds/Allgy <Miller,Moshe A - Last Filed: 05/14/22 01:16> <Veronica Hernández - Last Filed: 05/16/22 21:37> - Home Medications Home Medications: Ambulatory Orders Medication Instructions Recorded Confirmed Fluoxetine HCl [Prozac] 80 mg PO DAILY 06/07/17 05/13/22 Fluticasone/Vilanterol [Breo 1 puffs INH BID 05/11/22 05/13/22 Ellipta 200-25 Mcg INH] ALPRAZolam [Alprazolam] 0.5 mg PO DAILY PRN 05/14/22 05/14/22 Melatonin 10 mg PO HS PRN 05/14/22 05/14/22 Doxycycline [Vibramycin] 100 mg PO BID #15 tablet 05/15/22 L. Acidophilus/Pectin, [place] 1 each PO DAILY #8 cap 05/15/22 [Acidophilus Capsule] cephALEXin [Keflex] 500 mg PO Q6H #28 cap 05/15/22 - Allergies Allergies/Adverse Reactions: Allergies Allergy/AdvReac Type Severity Reaction Status Date / Time Penicillins Allergy Hives Verified 05/13/22 02:45 Review of Systems - Constitutional Constitutional: reports: Fever, Chills - Eyes Eyes: reports: Other (R eyelids were swollen shut and red the past 24 hrs) - Respiratory Respiratory: reports: Cough (ended 2 days ago) - All Other Systems All Other Systems: reports: Reviewed and negative <Veronica Hernández - Last Filed: 05/16/22 21:37> Exam - Physical Exam General Appearance: positive: Alert, Mild distress (from facial swelling) Eyes Bilateral: positive: Other (R eyelids both red and swollen, biut not shut, R ear red and swollen, R cheek and R forehead slightly red and swollen) ENT: positive: No signs of dehydration, Other (neck not swollen, able to open mouth w/out pain) Neck: positive: Nml inspection Respiratory: positive: No respiratory distress, Other (Poor air mvm, no wheezing) Cardiovascular: positive: Regular rate & rhythm, No murmur Abdomen: positive: Non-tender, Nml bowel sounds, No distention Skin: positive: Warm, Dry, Laceration (cm) Extremities: positive: Non-tender Neurologic/Psychiatric: positive: Oriented x3, Motor nml <Veronica Hernández - Last Filed: 05/16/22 21:37> - Vital Signs Vital Signs: Vital Signs x48h Temp Pulse Resp BP Pulse Ox 05/13/22 18:32 37.1 C 86 20 146/79 H 96 Conclusion/Plan - Lab Results Fish Bones: 05/13/22 03:00 05/13/22 03:00 <Moshe Miller - Last Filed: 05/14/22 01:16> - Problem List (1) Facial cellulitis Conclusion/Plan: Patient is not immunocompromised however she has a current active COVID infection which may have somehow added to this current problem The cellulitis infection has failed outpatient management Plan: Admit to inpatient status Await bld cx results, that were sent from ER. Start IV antibiotics. We will use IV Vanco and IV ceftriaxone, as was started in the ER Start probiotic If she develops any open areas, we will send off a wound specimen for gram stain and culture (2) Failure of outpatient treatment Conclusion/Plan: As per history, she was compliant with Keflex and Bactrim. Plan: She will be admitted to inpatient status for use of IV antibiotic (3) COVID-19 Conclusion/Plan: She has no pulmonary or GI symptoms. It is unclear if any part of this current infection could have stemmed from it or been worsened by her having another COVID infection Plan: Isolation will be ordered He has no pulmonary symptoms, no chest x-ray was done She has no indications to use Decadron or Remdesivir (4) Tobacco use Conclusion/Plan: Plan: Will order continuation of her home inhaler We will order nicotine patch (5) Anxiety and depression Conclusion/Plan: Plan: We will order continue use of her 2 home meds - Lab Results Fish Bones: 05/14/22 06:30 05/14/22 06:30 <Veronica Hernández - Last Filed: 05/16/22 21:37>
[2022-05-13] MEDS: SODIUM CHLORIDE 0.9% 1,000 ML IV SCH (18:35)
--- NOTE | 2022-05-13 19:12 | PHARMACY PROGRESS NOTE ---
- Therapy Status Vancomycin regimen day #: 1 Therapy status: Awaiting steady state Basis for treatment: Empirical Treatment indication: CELLULITIS ON FACE Trough goal: AUC /REMINGTON 454 Concurrent antibiotics: CEFTRIAXONE 1G DAILY - JOAQUIM Risk Risk level for Acute Kidney Injury: Low - Monitoring and Recommendation Clinical response to treatment: I&O Previous 24 hours 05/11/22 05/12/22 05/13/22 23:59 23:59 23:59 Intake Total 500 Balance 500 Lab Results 05/13/22 03:00 BUN 8 Creatinine 0.7 Estimated GFR (MDRD) 88 L Monitoring plan: Daily serum creatinine Next trough due prior to maintenance dose #: 3 Next trough due (date/time): 05/14/2022@0630 Areas for additional monitoring: IV to PO when appropriate, Therapy de- escalation based on culture results, Acute Kidney Injury (PT RECEIVED ONE DOSE OF 2G IN ED @0500 TODAY. ESTIMATED AUC/REMINGTON 454 mcg*hr/mL. ADJBW=70KG. EST CLCR~100ML/MIN. EST PEAK = 34, EST TR=23.)
[2022-05-13] MEDS: FLUoxetine 10 MG CAPSULE PO SCH (19:25)
[2022-05-13] MEDS: ALPRAZolam 0.25 MG TABLET PO SCH (19:25)
[2022-05-13] MEDS: VANCOMYCIN INJ 1 GM, VANCOMYCIN INJ 250 MG in SODIUM CHLORIDE 0.9% 250 ML IV SCH (19:27)
[2022-05-13] MEDS: MELATONIN 10 MG PO SCH (19:37)
[2022-05-13] MEDS: SACCHAROMYCES BOULARDII 250 MG CAPSULE PO SCH (22:17)
[2022-05-13] MEDS: ACETAMINOPHEN 325 MG TABLET PO PRN (22:21)
[2022-05-14] MEDS: SODIUM CHLORIDE FLUSH 0.9% 10 ML SYRINGE IVP SCH ×3 (01:28→18:11)
[2022-05-14 07:11] LABS: CALCIUM 8.9 mg/dL (8.5-10.3); CREATININE 0.7 mg/dL (0.4-1.0); MAGNESIUM 2.1 mg/dL (1.7-2.8); VANCOMYCIN,TROUGH 12.2 ug/mL (10.0-20.0)
[2022-05-14 07:33] LABS: BASOPHILS % (AUTO) 0.4 %; EOSINOPHILS # (AUTO) 0.1 10^3/uL (0.0-0.7); EOSINOPHILS % (AUTO) 1.5 %; HCT - HEMATOCRIT 39.9 % (37.0-47.0); HGB - HEMOGLOBIN 12.3 g/dL (12.0-16.0); LYMPHOCYTES # (AUTO) 3.2 10^3/uL (1.5-3.5); LYMPHOCYTES % (AUTO) 40.6 %; MEAN CORPUSCULAR HEMOGLOBIN 25.8 pg (27.0-31.0); MEAN CORPUSCULAR HGB CONC 30.8 g/dL (32.0-36.0); MEAN CORPUSCULAR VOLUME 83.6 fL (81.0-99.0); MEAN PLATELET VOLUME 8.4 fL (7.9-10.8); MONOCYTES # (AUTO) 0.5 10^3/uL (0.0-1.0); MONOCYTES % (AUTO) 6.3 %; NEUTROPHILS % (AUTO) 50.9 %; PLT - PLATELET COUNT 319 10^3/uL (130-450); RED BLOOD COUNT 4.77 10^6/uL (4.20-5.40); RED CELL DISTRIBUTION WIDTH 15.9 % (12.0-15.0); WHITE BLOOD COUNT 7.8 x10^3/uL (4.8-10.8)
[2022-05-14] MEDS: PANTOPRAZOLE 40 MG TABLET PO SCH (07:56)
[2022-05-14] MEDS: SACCHAROMYCES BOULARDII 250 MG CAPSULE PO SCH ×2 (07:56→20:26)
[2022-05-14] MEDS: VANCOMYCIN INJ 1 GM, VANCOMYCIN INJ 250 MG in SODIUM CHLORIDE 0.9% 250 ML IV SCH ×2 (08:06→20:21)
[2022-05-14] MEDS: ACETAMINOPHEN 325 MG TABLET PO PRN ×3 (08:07→18:45)
[2022-05-14] MEDS: MELATONIN 10 MG PO SCH (08:09)
[2022-05-14] MEDS ORDERED: cefTRIAXone 1 GM in SODIUM CHLORIDE 0.9% MINIBAG 100 ML IV SCH (09:00)
[2022-05-14] MEDS ORDERED: clonazePAM 0.5 MG TABLET PO SCH (09:00)
--- NOTE | 2022-05-14 09:02 | PHARMACY PROGRESS NOTE ---
- Best Possible Medication History Admit Date and Time: 05/13/22 1706 Processed by: Pharmacy Medication History completed: Yes Patient Interview: Completed Secondary Source(s): Insurance records As the person ultimately responsible for medication therapy, providers are able to order a medication from an existing home medication list in [facility] via the "Reconcile Routine" prior to Confirmation of that medication by support clerk. Such practice is discouraged except when the physician, in their clinical judgment, deems that a medical need exists for a medication without regard to previous use.
[2022-05-14] MEDS: SODIUM CHLORIDE 0.9% 1,000 ML IV SCH (09:25)
[2022-05-14] MEDS: cefTRIAXone 1 GM in SODIUM CHLORIDE 0.9% MINIBAG 100 ML IV SCH (09:25)
[2022-05-14] MEDS ORDERED: MELATONIN 10 MG PO SCH (10:52)
[2022-05-14] MEDS: CHOLECALCIFEROL 400 UNIT TABLET PO SCH (12:31)
[2022-05-14] MEDS: NICOTINE 14 MG PATCH TOP SCH (12:32)
[2022-05-14] MEDS: ASCORBIC ACID 500 MG TABLET PO SCH (12:32)
[2022-05-14] MEDS: FORMOTEROL FUMARATE NEB 20 MCG/2 ML INH SCH ×2 (18:19→18:52)
[2022-05-14] MEDS: BUDESONIDE 0.5 MG/2 ML NEB INH SCH ×2 (18:19→18:52)
--- NOTE | 2022-05-14 19:42 | PROVIDER PROGRESS NOTE ---
Assessment/Plan - Problem List (1) Facial cellulitis Assessment/Plan: Patient is not immunocompromised however she has a current active COVID infection which may have somehow added to this current problem. This cellulitis infection has failed outpatient management. On exam today, there is new redness and swelling of the left lower eyelid, However the right ear and right cheek swelling has decreased. Plan: Await bld cx results, that were sent from ER. Cont empiric IV Vanco and IV ceftriaxone Cont probiotic If she develops any open areas, we will send off a wound specimen for gram stain and culture (2) Failure of outpatient treatment Conclusion/Plan: As per history, she was compliant with Keflex and Bactrim. Plan: She will be admitted to inpatient status for use of IV antibiotic (3) COVID-19 Conclusion/Plan: She has no pulmonary or GI symptoms. It is unclear if any part of this current infection could have stemmed from COVID or been worsened by her having another COVID infection Plan: Isolation to continue She has no pulmonary symptoms, no chest x-ray was done She has no indications to use Decadron or Remdesivir (4) Tobacco use Conclusion/Plan: Plan: Continue her home inhaler We will order nicotine patch (5) Anxiety and depression Conclusion/Plan: Plan: We will order continue use of her home med - Current Meds Current Meds: Current Medications Generic Name Dose Route Start Last Admin Trade Name Janq PRN Reason Stop Dose Admin Acetaminophen 650 mg 05/13/22 17:08 05/14/22 18:45 Acetaminophen 325 Mg Tablet PO 650 mg Q4HR PRN Administration Pain 1 to 4, or Fever Alprazolam 0.5 mg 05/13/22 19:30 05/13/22 19:25 Alprazolam 0.25 Mg Tablet PO 0.5 mg 1930 HALLIE Administration Ascorbic Acid 500 mg 05/14/22 12:00 05/14/22 12:32 Ascorbic Acid 500 Mg Tablet PO 500 mg DAILY HALLIE Administration Budesonide 0.5 mg 05/13/22 19:00 05/14/22 18:52 Budesonide 0.5 Mg/2 Ml Neb INH Not Given RTBID HALLIE Cholecalciferol 400 unit 05/14/22 12:00 05/14/22 12:31 Cholecalciferol 400 Unit Tablet PO 400 unit DAILY HALLIE Administration Fluoxetine HCl 80 mg 05/13/22 19:30 05/13/22 19:25 Fluoxetine 10 Mg Capsule PO 80 mg 1929 HALLIE Administration Formoterol Fumarate 20 mcg 05/13/22 19:00 05/14/22 18:52 Formoterol Fumarate Neb 20 Mcg/2 Ml INH Not Given RTBID HALLIE Sodium Chloride 1,000 mls @ 60 mls/hr 05/13/22 18:00 05/14/22 09:25 Normal Saline 0.9% IV 60 mls/hr .[id number] HALLIE Administration Ceftriaxone Sodium 1 gm/ 100 mls @ 200 mls/hr 05/14/22 09:00 05/14/22 10:15 Sodium Chloride IV Infused DAILY HALLIE Infusion Vancomycin HCl 1 gm/ 250 mls @ 166.667 mls/hr 05/13/22 19:00 05/14/22 10:17 Vancomycin HCl 250 mg/ Sodium IV Infused Chloride Q12H HALLIE Infusion Nicotine 1 patch 05/14/22 12:00 05/14/22 12:32 Nicotine 14 Mg Patch TOP 1 patch DAILY HALLIE Administration Pantoprazole Sodium 40 mg 05/14/22 07:00 05/14/22 07:56 Pantoprazole 40 Mg Tablet PO 40 mg QDAC HALLIE Administration Saccharomyces Boulardii 250 mg 05/13/22 21:00 05/14/22 07:56 Saccharomyces Boulardii 250 Mg Capsule PO 250 mg BID HALLIE Administration Sodium Chloride 10 ml 05/14/22 01:00 05/14/22 18:11 Sodium Chloride Flush 0.9% 10 Ml Syringe IVP 10 ml 0100,0900,1700 HALLIE Administration - Lab Result Fish Bone Diagrams: 05/14/22 06:30 05/14/22 06:30 - Additional Planning My Orders: My Active Orders 05/13/22 19:00 Budesonide [Pulmicort] 0.5 mg INH RTBID Formoterol Fumarate [Perforomist] 20 mcg INH RTBID Vancomycin Inj [Vancomycin] 1 gm Vancomycin Inj [Vancomycin Hcl] 250 mg Sodium Chloride 0.9% [Normal Saline 0.9%] 250 ml IV Q12H 05/13/22 19:30 ALPRAZolam [Xanax] 0.5 mg PO 1929 FLUoxetine [PROzac] 80 mg PO 1930 05/13/22 21:00 Saccharomyces Boulardii [Florastor] 250 mg PO BID 05/14/22 01:00 Sodium Chloride Flush 0.9% [Normal Saline Flush 0.9%] 10 ml IVP 0100,0900,1700 05/14/22 09:00 cefTRIAXone [Rocephin] 1 gm Sodium Chloride 0.9% Minibag [Normal Saline 0.9% Minibag] 100 ml IV DAILY 05/14/22 10:52 Patient Own Med [Patient Own Medication] 1 each PO 192905/14/22 12:00 Ascorbic Acid [Vitamin C] 500 mg PO DAILY Cholecalciferol [Vitamin D3] 400 unit PO DAILY Nicotine 14 mg Patch [Nicoderm] 1 patch TOP DAILY Subjective - Subjective Patient Reports: Other (Her right face feels better, her left has new swelling, there is no drainage anywhere.) Objective Vital Signs: Vital Signs - 24 hr 05/14/22 05/14/22 05/14/22 03:01 08:00 16:00 Temperature 36.4 C L 36.5 C 36.4 C L Heart Rate [ 74 72 70 Brachial] Respiratory 16 19 16 Rate Blood Pressure 131/90 H [Left Brachial artery] Blood Pressure 112/59 L 106/54 L [Right Brachial artery] O2 Saturation 93 94 Oxygen O2 Source Room air I&O (Last 24 Hrs): Intake and Output Totals x24h 05/12/22 05/13/22 05/14/22 23:59 23:59 23:59 Intake Total 750 2180 Balance 750 2180 General: Alert, Oriented x3 HEENT: Other (Swelling and redness under right eye persists and spreads to her left lower eyelid today) Neck: Supple, No JVD Neuro: Alert, Non Focal Cardiovascular: Regular rate Respiratory: No respiratory distress Abdomen: No tenderness Extremities: No clubbing, No edema - Results Results: Laboratory Results WBC 7.8 x10^3/uL (4.8-10.8) 05/14/22 06:30 RBC 4.77 10^6/uL (4.20-5.40) 05/14/22 06:30 Hgb 12.3 g/dL (12.0-16.0) 05/14/22 06:30 Hct 39.9 % (37.0-47.0) 05/14/22 06:30 MCV 83.6 fL (81.0-99.0) 05/14/22 06:30 MCH 25.8 pg (27.0-31.0) L 05/14/22 06:30 MCHC 30.8 g/dL (32.0-36.0) L 05/14/22 06:30 RDW 15.9 % (12.0-15.0) H 05/14/22 06:30 Plt Count 319 10^3/uL (130-450) 05/14/22 06:30 MPV 8.4 fL (7.9-10.8) 05/14/22 06:30 Neut # (Auto) 4.0 10^3/uL (1.5-6.6) 05/14/22 06:30 Lymph # (Auto) 3.2 10^3/uL (1.5-3.5) 05/14/22 06:30 [place] # (Auto) 0.5 10^3/uL (0.0-1.0) 05/14/22 06:30 Eos # (Auto) 0.1 10^3/uL (0.0-0.7) 05/14/22 06:30 Baso # (Auto) 0.0 10^3/uL (0.0-0.1) 05/14/22 06:30 Absolute Nucleated RBC 0.00 x10^3/uL 05/14/22 06:30 Nucleated RBC % 0.0 /100WBC 05/14/22 06:30 Sodium 143 mmol/L (135-145) 05/14/22 06:30 Potassium 4.0 mmol/L (3.5-5.0) 05/14/22 06:30 Chloride 107 mmol/L (101-111) 05/14/22 06:30 Carbon Dioxide 27 mmol/L (21-32) 05/14/22 06:30 Anion Gap 9.0 (6-13) 05/14/22 06:30 BUN 5 mg/dL (6-20) L 05/14/22 06:30 Creatinine 0.7 mg/dL (0.4-1.0) 05/14/22 06:30 Estimated GFR (MDRD) 88 (>89) L 05/14/22 06:30 Glucose 94 mg/dL (70-100) 05/14/22 06:30 Lactic Acid 0.9 mmol/L (0.5-2.2) 05/13/22 03:00 Calcium 8.9 mg/dL (8.5-10.3) 05/14/22 06:30 Magnesium 2.1 mg/dL (1.7-2.8) 05/14/22 06:30 Total Bilirubin 0.3 mg/dL (0.2-1.0) 05/13/22 03:00 AST 20 IU/L (10-42) 05/13/22 03:00 ALT 21 IU/L (10-60) 05/13/22 03:00 Alkaline Phosphatase 92 IU/L (42-121) 05/13/22 03:00 Total Protein 7.2 g/dL (6.7-8.2) 05/13/22 03:00 Albumin 3.1 g/dL (3.2-5.5) L 05/13/22 03:00 Globulin 4.1 g/dL (2.1-4.2) 05/13/22 03:00 Albumin/Globulin Ratio 0.8 (1.0-2.2) L 05/13/22 03:00 Lipase 37 U/L (22-51) 05/13/22 03:00 Last Dose Date 05/13/22 05/14/22 06:30 Last Dose Time 205605/14/22 06:30 Vancomycin Peak 36.7 ug/mL (20.0-40.0) 05/13/22 22:16 Vancomycin Trough 12.2 ug/mL (10.0-20.0) 05/14/22 06:30
[2022-05-14] MEDS: ALPRAZolam 0.25 MG TABLET PO SCH (20:17)
[2022-05-14] MEDS: FLUoxetine 10 MG CAPSULE PO SCH (20:17)
[2022-05-15] MEDS: SODIUM CHLORIDE FLUSH 0.9% 10 ML SYRINGE IVP SCH ×2 (00:39→08:09)
[2022-05-15] MEDS: ACETAMINOPHEN 325 MG TABLET PO PRN ×2 (03:25→08:06)
[2022-05-15] MEDS: SODIUM CHLORIDE 0.9% 1,000 ML IV SCH (03:30)
[2022-05-15] MEDS: PANTOPRAZOLE 40 MG TABLET PO SCH (06:45)
[2022-05-15] MEDS: VANCOMYCIN INJ 1 GM, VANCOMYCIN INJ 250 MG in SODIUM CHLORIDE 0.9% 250 ML IV SCH (06:45)
[2022-05-15] MEDS: SACCHAROMYCES BOULARDII 250 MG CAPSULE PO SCH (08:06)
[2022-05-15] MEDS: CHOLECALCIFEROL 400 UNIT TABLET PO SCH (08:08)
[2022-05-15] MEDS: cefTRIAXone 1 GM in SODIUM CHLORIDE 0.9% MINIBAG 100 ML IV SCH (08:08)
[2022-05-15] MEDS: NICOTINE 14 MG PATCH TOP SCH (08:08)
[2022-05-15] MEDS: ASCORBIC ACID 500 MG TABLET PO SCH (08:09)
[2022-05-15] MEDS ORDERED: FLUTICASONE INH SCH (09:00)
[2022-05-15] MEDS ORDERED: VILANTEROL INH SCH (09:00)
--- NOTE | 2022-05-15 12:36 | Discharge Plan ---
Discharge Plan Problem Reviewed?: Yes Disposition: Home, Self Care Condition: Fair Prescriptions: L. Acidophilus/Pectin, [place] [Acidophilus Capsule] 1 each PO DAILY #8 cap cephALEXin [Keflex] 500 mg PO Q6H #28 cap Doxycycline [Vibramycin] 100 mg PO BID #15 tablet Diet: Soft (Soft diet is recommended while you have facial swelling but you can slowly go to regular solid food) Activity Restrictions: Activity as Tolerated Shower Restrictions: No Driving Restrictions: No Instruction Topics: ED Cellulitis Jennifer Orbital, ED Cellulitis Facial [facility] Concerns: You needed hospitalization because the oral antibiotics you were taking for the facial cellulitis were not working, your cellulitis was actually worsening. Here you have received several days of IV antibiotics. Blood cultures were checked to see if any bacteria are growing, and the blood cultures are negative. You are being discharged home with a transition back to oral antibiotics to complete a 10-day course. There is a new antibiotic called Doxycycline, to take twice a day, starting this evening AND you should resume and finish taking the Keflex medication. A probiotic has also been prescribed for you. The new medicines were both electronically prescribed to your [facility] pharmacy in [place]. You may also resume all your other usual medications that you took before this hospitalization. You may stop using the Bactrim Please see your primary care provider in 5 to 10 days for a follow-up visit regarding your cellulitis. In addition, because you tested positive for COVID on or about 05/10/2022, please follow CDC guidelines and your employer's rules, regarding returning to work and isolation. You may need to follow these precautions until 05/20/2022, or at least 5 days from your last symptoms (which were approx 05/10/2022), so precautions through today, 05/15/2022. Your employer may also require that you have a negative Covid test before you return to work. Plan of Treatment: As above. Care Goals: Improvement in symptoms and stabilization are the goals. Assessment: The patient understands and is agreeable with the plan. Additional Instructions or Follow Up instructions: If you have new or worsening symptoms, call your PCP for advice, or come to the ER. No Smoking: If you smoke, Please STOP! Call for help. Follow-up with: FRAN FISHER MD [Physician No Access] -
--- NOTE | 2022-05-15 13:14 | DISCHARGE SUMMARY ---
Discharge Summary Admit Date: 05/13/22 Discharge Date: 05/15/22 Discharging Provider: Dr Veronica Hernández Primary Care Provider: Dr Davi Pascual Condition at Discharge: Fair Discharge Disposition: 01 Home, Self Care - HPI History of Present Illness: This is a 52-year-old white female with a history of anxiety & depression, smoking, had COVID infection in 2020, she did not need hospitalization. There is a history of recent visit to the emergency room with c/o fevers and redness and swelling of the the right tragus and right face, and she was diagnosed with cellulitis and sent home on Keflex and Bactrim. Despite taking these antibiotics, her swelling spread. She came to the ER today because of worsening redness and swelling, no fever. CT scan was done that shows no areas of abscess or bony involvement. She is felt to have Facial cellulitis that is spreading despite compliance with oral antibiotics. 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 She is not COVID vaccinated. She tested positive for COVID a day before the initial presentation to the ER, which was 3 days ago. She does not have any cough, sputum production, dyspnea on exertion or GI symptoms. I spoke to patient about her CODE BLUE wishes and she wants to be a DNR. - HOSPITAL COURSE Hospital Course: (1) Facial cellulitis Patient is not immunocompromised however she has tested (+) for active COVID infection 1 day before the face symptoms. Her cellulitis infection failed outpatient management. She was admitted, blood cultures were drawn and she was put on empiric iv Vancomycin and Ceftrixone, plus a probiotic. Her redness and swelling of the right ear and right cheek decreased, but she did have spread of swelling and redness to her left lower eyelid. After 2.5 days of iv antibiotics, the redness and swelling was only seen below the R lower eyelid. No areas of open drainage occurred to obtain a wound culture. Her bld cultures were neg to date and she was discharged to take 7.5 more days of Doxycycline 100 mg BID and the Keflex 500 mg QID, that had been prescribed by the ER, which she still had at home. Also a probiotic was ordered for a week. (2) Failure of outpatient treatment She was compliant with Keflex and Bactrim, which were not treating the spreading cellulitis. She was therefore deemed to qualify for Inpatient status. We changed to different iv forms of antibiotics while she was here. (3) COVID-19 Currently, at the [employer] where she works, there is a COVID outbreak. She luckly had no pulmonary or GI symptoms. Respiratory droplet isolation was ordered. She had no indications to use Decadron or Remdesivir. She was instructed about COVID isolation and resuming work. (4) Tobacco use We ordered a nicotine patch while here. Smoking cessation was promoted. (5) COPD without exacerbation She was kept on her Breo inhaler prn. (6) Anxiety and depression We ordered continued use of her home meds - ALLERGIES Allergies/Adverse Reactions: Allergies Allergy/AdvReac Type Severity Reaction Status Date / Time Penicillins Allergy Hives Verified 05/13/22 02:45 - MEDICATIONS Home Medications: Ambulatory Orders Medication Instructions Recorded Confirmed Fluoxetine HCl [Prozac] 80 mg PO DAILY 06/07/17 05/13/22 Fluticasone/Vilanterol [Breo 1 puffs INH BID 05/11/22 05/13/22 Ellipta 200-25 Mcg INH] ALPRAZolam [Alprazolam] 0.5 mg PO DAILY PRN 05/14/22 05/14/22 Melatonin 10 mg PO HS PRN 05/14/22 05/14/22 Doxycycline [Vibramycin] 100 mg PO BID #15 tablet 05/15/22 L. Acidophilus/Pectin, [place] 1 each PO DAILY #8 cap 05/15/22 [Acidophilus Capsule] cephALEXin [Keflex] 500 mg PO Q6H #28 cap 05/15/22 - PHYSICAL EXAM AT DISCHARGE General Appearance: positive: No acute distress, Alert Eyes Bilateral: positive: Other (Mild redness and mild swelling under R eye) ENT: positive: ENT inspection nml, No signs of dehydration Neck: positive: Nml inspection, No JVD Respiratory: positive: No respiratory distress, Breath sounds nml Cardiovascular: positive: Regular rate & rhythm, No murmur Abdomen: positive: Non-tender, Nml bowel sounds, No distention Skin: positive: Warm, Dry Extremities: positive: Non-tender, No pedal edema Neurologic/Psychiatric: positive: Oriented x3, Motor nml - LABS Result Diagrams: 05/14/22 06:30 05/14/22 06:30 - DIAGNOSTIC IMAGING Diagnostic Imaging Results: Final report reviewed - FOLLOW UP Follow Up: See PCP in 5-10 days, for a hospital F/U visit. - TIME SPENT Time Spent in Discharge (Minutes): 30
[2022-05-15 14:01] VITALS: BP 107/74
== END 2022-05-15 14:00 | disposition home or self-care (01) | DRG 602 ==
LOC: ED 02:38 → MS2 17:06
PROVIDERS: ADMIT Internal Medicine; ATTEND Internal Medicine
DX: L03.211 Cellulitis of face (principal); U07.1 COVID-19; F32.A Depression, unspecified; F41.9 Anxiety disorder, unspecified; J44.9 Chronic obstructive pulmonary disease, unspecified; I10 Essential (primary) hypertension; F17.200 Nicotine dependence, unspecified, uncomplicated; Z28.310 Unvaccinated for COVID-19
CPT/HCPCS: 36415; 70487; 80048; 80053; 80202; 83605; 83690; 83735; 85025; 87040; 96365; 96366; 96375; 99283; 99285; A9270; J3370; Q9967

== ENCOUNTER 2022-06-13 01:01 | Emergency (ER) | payer OTHER ==
[2022-06-13 01:45] LABS: BILIRUBIN,URINE NEGATIVE (NEGATIVE); GLUCOSE, URINE (UA) NEGATIVE (NEGATIVE); KETONES,URINE (UA) NEGATIVE (NEGATIVE); LEUKOCYTE ESTERASE, URINE SMALL (NEGATIVE); NITRITE,URINE POSITIVE (NEGATIVE); OCCULT BLOOD,URINE LARGE (NEGATIVE); PH,URINE 5.5 PH (5.0-7.5); PROTEIN,URINE 30 mg/dL (NEGATIVE); UROBILINOGEN,URINE 0.2 (NORMAL) E.U./dL (NORMAL)
[2022-06-13 01:52] LABS: CLARITY,URINE HAZY (CLEAR)
[2022-06-13 01:54] LABS: BACTERIA,URINE Few /HPF (None Seen); SQUAMOUS EPITHELIAL CELL,UR FEW Squamous (<= Few); WBC,URINE >25 /HPF (0-5)
[2022-06-13] MEDS ORDERED: levoFLOXacin 750 MG/150 ML 750 MG/150 ML BAG IV STA (02:47)
--- NOTE | 2022-06-13 02:55 | ED Physician Documentation ---
PD HPI FEMALE - Stated complaint Stated Complaint: LT SIDE PX - Chief complaint Chief Complaint: Back Pain - History obtained from History obtained from: Patient - History of Present Illness Timing - details: Gradual onset Recently seen: Not recently seen - Additional information Additional information: HPI from patient. Patient c/o left flank/left paralumbar pain since approximately 7 PM tonight, gradual onset, described as "sharp, stabbing" per patient. She was at home at rest at time of onset. No exacerbating nor ameliorating factors. Denies fever. Review of Systems Constitutional: denies: Fever, Chills, Sweats GI: denies: Abdominal Pain (back/flank pain, but no abdominal pain per se), Nausea, Vomiting PD PAST MEDICAL HISTORY - Past Medical History Cardiovascular: Hypertension Respiratory: COPD Neuro: None Endocrine/Autoimmune: None GI: Cholelithiasis STRAP BUCKLER: Other : Kidney stones HEENT: None Psych: Depression, Anxiety Musculoskeletal: None Derm: None - Past Surgical History Past Surgical History: Yes General: Cholecystectomy /STRAP BUCKLER: section, Other - Present Medications Home Medications: Ambulatory Orders Medication Instructions Recorded Confirmed Fluoxetine HCl [Prozac] 80 mg PO DAILY 06/07/17 05/13/22 Fluticasone/Vilanterol [Breo 1 puffs INH BID 05/11/22 05/13/22 Ellipta 200-25 Mcg INH] ALPRAZolam [Alprazolam] 0.5 mg PO DAILY PRN 05/14/22 05/14/22 Melatonin 10 mg PO HS PRN 05/14/22 05/14/22 Doxycycline [Vibramycin] 100 mg PO BID #15 tablet 05/15/22 L. Acidophilus/Pectin, [place] 1 each PO DAILY #8 cap 05/15/22 [Acidophilus Capsule] cephALEXin [Keflex] 500 mg PO Q6H #28 cap 05/15/22 HYDROcod/ACETAM 5/325 [[place] 5/325] 1 - 2 tablet PO Q6H PRN #14 tablet 06/13/22 levoFLOXacin [Levofloxacin] 750 mg PO DAILY #7 tablet 06/13/22 - Allergies Allergies/Adverse Reactions: Allergies Allergy/AdvReac Type Severity Reaction Status Date / Time Penicillins Allergy Hives Verified 06/13/22 01:16 - Social History Does the pt smoke?: Yes Smoking Status: Current every day smoker Does the pt drink ETOH?: No Does the pt have substance abuse?: No - Immunizations Immunizations are current?: No Immunizations: Other immun not current - POLST Patient has POLST: No PD ED PE NORMAL - Vitals Vital signs reviewed: Yes - General General: Alert and oriented X 3, No acute distress, Well developed/nourished - Cardiac Cardiac: RRR, No murmur - Respiratory Respiratory: No respiratory distress, Clear bilaterally - Abdomen Abdomen: Soft, Non tender - Back Back: No spinal TTP, Other (mild/moderate left CVAT) - Derm Derm: No rash Results - Vitals Vitals: Oxygen O2 Source Room air - Labs Labs: Microbiology 06/13/22 01:39 Urine Culture - Preliminary Urine,Clean Catch Escherichia Coli Laboratory Tests 06/13/22 01:39 Urine Color YELLOW Urine Clarity HAZY Urine pH 5.5 Ur Specific [place] 1.015 Urine Protein 30 H Urine Glucose (UA) NEGATIVE Urine Ketones NEGATIVE Urine Occult Blood LARGE H Urine Nitrite POSITIVE H Urine Bilirubin NEGATIVE Urine Urobilinogen 0.2 (NORMAL) Ur Leukocyte Esterase SMALL H Urine RBC 11-25 H Urine WBC >25 H Ur Squamous Epith Cells FEW Squamous Urine Bacteria Few Ur Microscopic Review INDICATED Urine Culture Comments INDICATED PD Medical Decision Making - ED course Complexity details: reviewed results, considered differential, d/w patient ED course: Presents with left flank pain, UA is strongly s/o UTI. Left CVAT on exam. Clinical presentation is c/w left pyelonephritis. She is in NAD/nontoxic in appearance, benign abdominal exam. 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 She is given 750mg IV levaquin and rx for levaquin e-prescribed along with vicodin. She is driving home, and has a few tablets of vicodin at home which she will take when she gets home. Return precautions discussed. I am prescribing a short course of short-acting opioid pain medication for this patient. I have reviewed the patients NET DEVELOPER CONTRACT and no concerning findings were noted. I have discussed that the opioids are for short term therapy only, and will not be refilled from the ED. Departure - Departure Disposition: 01 Home, Self Care Clinical Impression: Pyelonephritis Condition: Good Instructions: ED Kidney Infec Female Prescriptions: levoFLOXacin [Levofloxacin] 750 mg PO DAILY #7 tablet HYDROcod/ACETAM 5/325 [[place] 5/325] 1 - 2 tablet PO Q6H PRN #14 tablet PRN Reason: Pain Comments: The urinalysis performed tonight is strongly suggestive of a urinary tract infection. This finding combined with the left flank pain and tenderness would suggest a left-sided kidney infection. For this, you are given a dose of an antibiotic in the emergency department (Levaquin) and a prescription for this antibiotic has been electronically submitted to the [facility] pharmacy in [place]. I have also submitted a prescription for Vicodin (narcotic/opiate pain medication) to the [facility] pharmacy in [place] as well. Contact your primary care provider when their office opens on Tuesday to arrange for immediate follow-up appointment. The antibiotics should have a noticeable effect (your symptoms should be improving) within 2 to 3 days of starting the antibiotic. I am prescribing a short course of narcotic pain medication for you. These are potentially dangerous and addictive medications that should be used carefully. These medications may constipate you. Take an [id number] stool softener (docusate) twice daily with plenty of water while taking these medications. If you go 24 hours without a bowel movement, take [id number] miralax, per package instructions. Do not drink or drive while taking these medications. If you received narcotic or sedating medications while in the emergency department, do not drive for 24 hours. Store this medication in a safe, secure place and out of reach of children. It is a violation of federal law to give or sell this medication to another person or to use in a manner other than prescribed. The ED will not refill narcotic prescriptions, including prescriptions lost or stolen. To dispose of unwanted medications: 1. [facility] at [address] in [place] has a medication drop box. They accept prescription medications (in pill form) Tuesday through Tuesday 9:00 a.m. to 5:00 p.m. 2. [facility] [employer] [facility] accepts prescription medications (in pill form only) for disposal year round. Call for more information. 3. Contact the [facility] for the next [facility] sponsored prescription drug collection event. , [phone], or [phone]; Discharge Date/Time: 06/13/22 04:32
[2022-06-13 04:32] VITALS: BP 142/81
== END 2022-06-13 04:32 | disposition home or self-care (01) ==
LOC: ED 01:01
DX: N12 Tubulo-interstitial nephritis, not specified as acute or chronic (principal); F17.200 Nicotine dependence, unspecified, uncomplicated
CPT/HCPCS: 36415; 81001; 81003; 87086; 87181; 99283